=== PATIENT | male | born 1945 | race Hispanic/Latino ===

== ENCOUNTER 2019-07-15 07:47 | Day surgery (SDC) | payer MEDICARE ==
[2019-07-14 16:25] LABS: BASOPHILS % (AUTO) 0.6 % (0.0-5.0); HEMATOCRIT 36.5 % (42-54); LYMPHOCYTES % (AUTO) 4.9 % (21.0-51.0); MEAN CORPUSCULAR HGB CONC 34.5 g/dL (32.0-36.0); MEAN CORPUSCULAR VOLUME 89.7 fL (79-99); NEUTROPHILS % (AUTO) 79.9 % (40.0-77.0); PLATELET COUNT (AUTO) 215 K/uL (130-400); RED BLOOD CELL COUNT(AUTO) 4.07 MIL/uL (4.50-6.20); RED CELL DISTRIBUTION WIDTH 12.5 % (11.0-15.5); WHITE BLOOD COUNT (AUTO) 8.3 K/uL (4.8-10.8)
[2019-07-14 16:30] VITALS: BP 148/83
[2019-07-14 16:35] LABS: CREATININE 1.3 mg/dL (0.5-1.5); POTASSIUM 3.8 mmol/L (3.5-5.1)
[2019-07-15] VITALS (17 sets, daily range): BP systolic 108–155; BP diastolic 67–84
[~2019-07-15] VITALS: Ht 167.6 cm; Wt 86.0 kg
[2019-07-15] MEDS: CEFTRIAXONE SODIUM 1 GM IVP SCH ×2 (06:00→11:24)
[~2019-07-15 07:47] MED LIST: AEC81 PO; DEXA4TAB PO; FENO145T37 PO; HYDR12.54 PO; LOSA50TA64 PO; PHEN-948 PO; ROSU20TA31 PO; TAMS-1 PO
[2019-07-15] MEDS ORDERED: LACTATED RINGERS 1000ML 1,000 ML IV ONE (08:44)
[2019-07-15] MEDS ORDERED: DEXAMETHASONE SOD PHOSPHATE 10MG/ML 1ML VIAL ONE (11:01)
[2019-07-15] MEDS ORDERED: LIDOCAINE PF 2% 5ML ABBOJECT ONE (11:01)
[2019-07-15] MEDS ORDERED: MIDAZOLAM HCL 1 MG/ML 2ML VIAL ONE (11:01)
[2019-07-15] MEDS ORDERED: PROPOFOL 10 MG/ML 20ML VIAL IV ONE (11:02)
[2019-07-15] MEDS ORDERED: ONDANSETRON HCL 4 MG/2 ML VIAL ONE (11:02)
[2019-07-15] MEDS ORDERED: FENTANYL CITRATE PF 50 MCG/1 ML 2ML VIAL ONE (11:02)
[2019-07-15] MEDS ORDERED: PHENAZOPYRIDINE HCL 200 MG TABLET ONE (13:30)
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
== END 2019-07-15 13:40 ==
LOC: DAH 07:47
PROVIDERS: ATTEND Urology
DX: N32.0 Bladder-neck obstruction (principal); N21.0 Calculus in bladder; R33.9 Retention of urine, unspecified; G47.30 Sleep apnea, unspecified; I10 Essential (primary) hypertension; Z85.46 Personal history of malignant neoplasm of prostate; Z79.899 Other long term (current) drug therapy
CPT/HCPCS: 36415 ×2; 52310; 80048; 82360; 85025; 93005; A4215; A4221; A4222; A4223; A4354; A4510; A4600; A4663; A5113; A6260; C1758; C1769; J0696; J1100; J2001; J2250; J2405; J2704; J3010; J7120